=== PATIENT | female | born 2000 | race African-American/Black ===

== ENCOUNTER 2019-09-09 15:01 | Emergency (ER) | payer OTHER ==
[~2019-09-09] VITALS: Ht 157.5 cm; Wt 49.9 kg
[2019-09-09 15:37] LABS: URINE BILIRUBIN NEGATIVE (Negative); URINE BLOOD NEGATIVE (Negative); URINE CLARITY CLEAR; URINE COLOR YELLOW; URINE GLUCOSE-RANDOM* NEGATIVE (Negative); URINE KETONES NEGATIVE (Negative); URINE LEUKOCYTES-REFLEX NEGATIVE (Negative); URINE NITRITE-REFLEX NEGATIVE (Negative); URINE PROTEIN (DIPSTICK) 2+ (Negative); URINE SPECIFIC GRAVITY 1.025 (1.005-1.035)
[2019-09-09 15:58] LABS: CASTS None Seen /LPF (None Seen); CRYSTALS None Seen /LPF (None Seen); SQUAMOUS 4-10 Moderate /LPF (0-3); URINE RBC None Seen /HPF (0-2); URINE WBC-REFLEX 0-5 Rare /HPF (0-5)
[2019-09-09] MEDS ORDERED: IBUPROFEN 600600 M1 PO (16:26)
[2019-09-09 16:35] VITALS: BP 98/47
[2019-09-11 22:09] LABS: HSV 1 DNA Negative (Negative); HSV 2 DNA Negative (Negative)
[2019-09-13 09:41] LABS: HSV PCR SOURCE LABIA
== END 2019-09-09 16:36 | disposition home or self-care (01) ==
LOC: ER 15:01 → EDBD 15:01 → ER 16:36
PROVIDERS: Physician Assistant
DX: L73.9 Follicular disorder, unspecified (principal); Z91.018 Allergy to other foods

== ENCOUNTER 2020-11-01 23:23 | Emergency (ER) | payer OTHER ==
[~2020-11-01] VITALS: Ht 157.5 cm; Wt 47.6 kg
[~2020-11-01 23:23] MED LIST: IBUPROFEN 600600 M1 PO
[2020-11-01 23:47] LABS: URINE BILIRUBIN NEGATIVE (Negative); URINE BLOOD TRACE (Negative); URINE CLARITY SL CLOUDY; URINE COLOR YELLOW; URINE GLUCOSE-RANDOM* NEGATIVE (Negative); URINE KETONES NEGATIVE (Negative); URINE LEUKOCYTES-REFLEX TRACE (Negative); URINE NITRITE-REFLEX NEGATIVE (Negative); URINE PROTEIN (DIPSTICK) 3+ (Negative); URINE SPECIFIC GRAVITY 1.025 (1.005-1.035)
[2020-11-01 23:57] LABS: CASTS None Seen /LPF (None Seen); MUCUS 0-3 Light strn/LPF (None Seen); SQUAMOUS >10 Many /LPF (0-3)
[2020-11-01 23:58] LABS: AMORPHOUS PHOSPHATES Many /LPF (None Seen)
[2020-11-02] LABS: BACTERIA-REFLEX 1-9 Few /HPF (None Seen); CRYSTALS None Seen /LPF (None Seen); URINE RBC 0-2 Rare /HPF (0-2); URINE WBC-REFLEX 6-15 Few /HPF (0-5)
[2020-11-02] MEDS ORDERED: DOXYCYCLINE 10100 MG PO (00:32)
[2020-11-02 01:31] VITALS: BP 122/68
== END 2020-11-02 01:25 | disposition home or self-care (01) ==
LOC: ER 23:23
PROVIDERS: Emergency Medicine
DX: R30.0 Dysuria (principal); N89.8 Other specified noninflammatory disorders of vagina; J45.909 Unspecified asthma, uncomplicated; Z91.018 Allergy to other foods